=== PATIENT | male | born 1995 | race Two or more races ===

== ENCOUNTER 2016-11-21 19:29 | Emergency (ER) | payer MEDICAID, OTHER ==
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
--- NOTE | 2016-11-21 21:20 | RADIOLOGY REPORT (SQ) ---
EXAM DESCRIPTION: NOSE/NASAL BONES COMPLETED DATE/TIME: 11/21/2016 9:11 pm REASON FOR STUDY: injury to nose, not in alignment, occluded lt nare COMPARISON: None. NUMBER OF VIEWS: Three view. TECHNIQUE: Images of the nasal bone acquired. LIMITATIONS: None. FINDINGS: ORBITS: No fracture. No foreign body. SINUSES: No mucosal thickening. No air fluid levels. FACIAL BONES: No obvious fracture of the lateral views. Limited visualization on the angled frontal view. OTHER: No other significant finding. IMPRESSION: NO OBVIOUS FRACTURE ON THE LATERAL VIEWS OF THE NASAL BONE. LIMITED VISUALIZATION ON TH E ANGLED FRONTAL VIEW. TECHNICAL DOCUMENTATION: JOB ID: [id number] [employer]- All Rights Reserved
[2016-11-21 21:42] VITALS: BP 125/68
== END 2016-11-21 21:40 | disposition home or self-care (01) ==
LOC: ER 19:29
DX: S09.92XA Unspecified injury of nose, initial encounter (principal); J34.2 Deviated nasal septum; W20.8XXA Other cause of strike by thrown, projected or falling object, initial encounter; Y93.E6 Activity, residential relocation; Y99.0 Civilian activity done for income or pay
CPT/HCPCS: 70160; 99283